=== PATIENT | female | born 1955 | race African-American/Black ===

== ENCOUNTER 2021-01-25 15:31 | Emergency (ER) | payer OTHER ==
[~2021-01-25] VITALS: Ht 172.7 cm; Wt 113.8 kg
[~2021-01-25 15:31] MED LIST: FLEXERIL PO; LISINOPRIL10 MG PO; NORCO 5-325 TA1 EACH PO; SEROQUEL 100 M100 M1 PO
[2021-01-25 16:31] LABS: BASOPHILS 0.8 % (0.0-2.0); EOSINOPHILS 2.2 % (0.0-3.0); HEMATOCRIT 32.9 % (37.0-47.0); HEMOGLOBIN 11.1 gm/dL (12.0-15.0); LYMPHOCYTES 27.8 % (24.0-44.0); MCH 30.6 pg (26.0-34.0); MCHC 33.8 g/dL (28.0-37.0); MCV 90.5 fL (80.0-100.0); PLATELET COUNT 173 thou/uL (150-400); POLYS 59.2 % (36.0-66.0); RBC 3.63 mil/uL (4.20-5.00); RDW 13.4 % (10.5-14.5); WBC 5.1 thou/uL (4.0-11.0)
[2021-01-25 16:38] LABS: ANION GAP 8 mmol/L (7-16); BUN 28 mg/dL (7-18); CALCIUM 10.4 mg/dL (8.5-10.1); CHLORIDE 96 mmol/L (98-107); CO2 26 mmol/L (21-32); CREATININE 1.4 mg/dL (0.6-1.0); GLUCOSE 215 mg/dL (74-106); POTASSIUM 5.1 mmol/L (3.5-5.1); SODIUM 130 mmol/L (136-145)
[2021-01-25 16:48] LABS: SGOT 22 U/L (15-37); SGPT 26 U/L (14-59); TOTAL BILIRUBIN 0.3 mg/dL (0.2-1.0); TOTAL PROTEIN 7.6 g/dL (6.4-8.2); TROPONIN-I <0.06 ng/mL (<0.06)
[2021-01-25] MEDS ORDERED: FLEXERIL PO (17:12)
[2021-01-25 17:34] LABS: URINE BILIRUBIN NEGATIVE (Negative); URINE BLOOD NEGATIVE (Negative); URINE CLARITY CLEAR; URINE COLOR YELLOW; URINE GLUCOSE-RANDOM* NEGATIVE (Negative); URINE KETONES NEGATIVE (Negative); URINE LEUKOCYTES-REFLEX NEGATIVE (Negative); URINE NITRITE-REFLEX NEGATIVE (Negative); URINE PROTEIN (DIPSTICK) NEGATIVE (Negative); URINE SPECIFIC GRAVITY 1.015 (1.005-1.035); URINE UROBILINOGEN 0.2 E.U./dl (0.2-1.0)
[2021-01-25] MEDS ORDERED: LEVOFLOXACIN500 MG PO (18:19)
[2021-01-25 18:46] VITALS: BP 140/59
--- NOTE | 2021-01-26 08:42 | EKG ---
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 : 1955 Requested By: Aguilar Guillory Order Number: [id number] MD: Destin Bland Measurements Intervals [place] Rate: 103 P: 65 MT: 174 QRS: 8 QRSD: 92 T: 156 QT: 301 QTc: 394 Interpretive Statements Sinus tachycardia Probable LVH with secondary repol abnrm Anterior Q waves, possibly due to LVH Baseline wander in lead(s) II,aVF No previous ECG available for comparison Electronically Signed On 01-26-2021 8:42:25 CDT by Destin Bland [email or web address] <ELECTRONICALLY SIGNED> By: Destin Bland MD, [facility] 01/26/21 0842 51 51 Destin Bland MD, [facility] /EPI
== END 2021-01-25 18:48 | disposition home or self-care (01) ==
LOC: ER 15:31
PROVIDERS: Nurse Practitioner
DX: J18.9 Pneumonia, unspecified organism (principal); M25.561 Pain in right knee; M25.562 Pain in left knee; R53.1 Weakness; J44.9 Chronic obstructive pulmonary disease, unspecified; E11.9 Type 2 diabetes mellitus without complications; Z79.899 Other long term (current) drug therapy; Z88.8 Allergy status to other drugs, medicaments and biological substances; Z88.1 Allergy status to other antibiotic agents